=== PATIENT | female | born 1990 | race Caucasian/White ===

== ENCOUNTER 2018-12-18 18:20 | Inpatient (IN) | payer BC, MEDICAID ==
[~2018-12-18] VITALS: Ht 162.6 cm; Wt 99.5 kg
[~2018-12-18 18:20] MED LIST: NORepinephrine 1 mg/ml inj IV ONE
[2018-12-18] MEDS ORDERED: gentamicin inj 500 MG in normal saline 100ml IV soln 100 ML IV ONE (18:30)
[2018-12-18] MEDS ORDERED: normal saline 1000ML IV soln IV ONE (18:30)
[2018-12-18] MEDS ORDERED: NORepinephrine 8mg/ 250ml NS 250 ML IV PRN (18:39)
[2018-12-18] MEDS ORDERED: cefTAZidime inj 2 GM in normal saline 100ml IV soln 100 ML IV ONE (18:39)
--- NOTE | 2018-12-18 18:39 | NUR ---
LEVOPHED IS RUNNING AT 4.99 MCG/MIN. BP 116/59. PT REPORTS SOME PAIN TO HER BACKA ND REPROTS SHE HAD A SPINAL TAP AT [facility].
--- NOTE | 2018-12-18 18:41 | NUR ---
dr chand made aware of the IV site not patent where the levo was running.
--- NOTE | 2018-12-18 18:44 | NUR ---
Pharmacist made aware of the IV and levo. Informed to watch for redness.
--- NOTE | 2018-12-18 18:45 | NUR ---
where her iv line in her RUE is, there is an area that is 1"x3" that is bilingual teacher aide in color. It is tender to touch.
--- NOTE | 2018-12-18 18:53 | NUR ---
SUPPLIES AT [facility] FOR CENTRAL LINE PLACEMENT. ENVIRONMENTAL PROJECTS ADVISOR AT BEDSIDE FOR CXR, MD REQUESTS TO WAIT UNTIL AFTER CL PLACEMENT FOR CXR. PT CALM AND COOPERATIVE. WITH STABLE VS. AFEBRILE
[2018-12-18 18:55] LABS: BASOPHILS % (AUTO) 0.3 % (0-1); EOSINOPHILS % (AUTO) 0.1 % (0-6); HEMOGLOBIN 9.6 g/dl (12.0-16.0); LYMPHOCYTES # (AUTO) 2.7 X10'3 (1.1-4.8); LYMPHOCYTES % (AUTO) 18.2 % (21-51); MEAN CORPUSCULAR HEMOGLOBIN 29.8 PG (27.0-31.0); MEAN CORPUSCULAR HGB CONC 33.1 g/dL (33.0-36.5); MEAN PLATELET VOLUME 7.7 FL (7.4-10.4); MONOCYTES # (AUTO) 0.7 X10'3 (0-0.9); MONOCYTES % (AUTO) 4.8 % (2-12); NEUTROPHILS # (AUTO) 11.4 X10'3 (1.8-7.7); NEUTROPHILS % (AUTO) 76.6 % (42-75); PLATELET COUNT 395 X10'3 (140-440); RED BLOOD COUNT 3.22 X10'6 (4.20-5.60); RED CELL DISTRIBUTION WIDTH 15.9 % (11.5-14.5); WHITE BLOOD COUNT 14.9 X10'3 (4.5-11.0)
[2018-12-18] MEDS ORDERED: NO HOME MEDS (19:01)
[2018-12-18 19:07] LABS: ALANINE AMINOTRANSFERASE 55 U/L (12-78); ALBUMIN 1.8 G/DL (3.4-5.0); ALBUMIN/GLOBULIN RATIO 0.4 (1.1-1.5); ALKALINE PHOSPHATASE 117 IU/L (46-116); ANION GAP 10 (8-16); ASPARTATE AMINO TRANSFERASE 21 U/L (10-37); BILIRUBIN,TOTAL 0.4 MG/DL (0.1-1.0); BLOOD UREA NITROGEN 6 MG/DL (7-18); BUN/CREATININE RATIO 7.7 (6.6-38.0); CALCIUM 7.2 MG/DL (8.5-10.1); CHLORIDE 109 MMOL/L (99-107); CREATININE 0.78 MG/DL (0.40-0.90); GLUCOSE 114 MG/DL (70-104); MAGNESIUM 1.9 MG/DL (1.5-2.4); POTASSIUM 3.9 MMOL/L (3.5-5.1); SODIUM 141 MMOL/L (135-145); TOTAL CARBON DIOXIDE 22.5 MMOL/L (24-32); TOTAL PROTEIN 6.2 G/DL (6.4-8.2); eGFR 89 ML/MIN
--- NOTE | 2018-12-18 19:13 | NUR ---
DR. CARTER AT BEDSIDE FOR CL PLACEMENT. VERBAL RECEIVED FOR MSIV 10 MG FOR5 CL PLACEMENT. 2ND PIV HAS INFILTRATED, DR. CARTER AWARE. 20 G PIV PLACED IN LEFT AC .
[2018-12-18] MEDS ORDERED: morphine 10mg/ml inj. IV ONE (19:15)
--- NOTE | 2018-12-18 19:26 | NUR ---
SHE IS IN POSITION FOR A CENTRAL LINE PLACEMENT AND HER OXYGEN SATURATION DROPPED TO 88% SO OXYGEN 2LNC PLACED.
--- NOTE | 2018-12-18 19:41 | NUR ---
CENTRAL LINE IN PLACE, 3 LUMAN TO RIGHT IJ, PT TOLERATED WELL.
--- NOTE | 2018-12-18 19:55 | NUR ---
CURRENT BP 102/57, DR. RAUL ONEAL GOAL IS 110 SYSTOLIC. D/T DELAY WITH PIV INFILTRATING EARLIER, UPDATED THAT PT STILL RECEIVING THE 3RD LITER THAT WAS TO BE GIVEN BY
--- NOTE | 2018-12-18 20:05 | NUR ---
PER DR. RAUL SHELTON TO USE CENTRAL LINE. DR. BLOUNT AT BEDSIDE FOR ADMISSION.
[2018-12-18] MEDS ORDERED: potassium Cl 20mEq/100mL bag 100 ML IV PRN ×2 (20:10)
[2018-12-18] MEDS ORDERED: potassium Cl 20 mEq SR tablet PO PRN ×2 (20:10)
[2018-12-18] MEDS ORDERED: ondansetron/PF 4mg/2ml inj IV PRN (20:10)
[2018-12-18] MEDS ORDERED: acetaminophen 325mg tablet PO PRN ×2 (20:10)
[2018-12-18] MEDS: K, MAG and/or Phos replacement - Verify level? MC SCH (20:10)
--- NOTE | 2018-12-18 20:13 | NUR ---
MOTHER, FATHER AND BROTHER NOW AT BEDSIDE. ALL INTERACTING APPROPRIATELY. BP 118/73, HR 103.
[2018-12-18] MEDS: normal saline 1000ml 1,000 ML IV SCH (20:53)
--- NOTE | 2018-12-18 21:39 | NUR ---
Patient in room . I have received report from ZOHAIB Salas in the ER and had the opportunity to ask questions and assume patient care.
[2018-12-18 22:09] VITALS: BP 130/76
[2018-12-18 23:00] VITALS: BP 135/86
[2018-12-19] VITALS (24 sets, daily range): BP systolic 96–146; BP diastolic 47–90
[2018-12-19] MEDS: NORMAL SALINE IV SCH ×3 (00:23→15:48)
[2018-12-19] MEDS: GENTAMICIN IV SCH ×3 (00:23→15:48)
[2018-12-19] MEDS: HYDROcodone/acetaminophen 5mg/325mg tablet PO PRN ×4 (00:39→19:43)
[2018-12-19 03:22] LABS: BASOPHILS % (AUTO) 0.2 % (0-1); EOSINOPHILS % (AUTO) 0.3 % (0-6); HEMATOCRIT 26.6 % (35.0-45.0); HEMOGLOBIN 8.8 g/dl (12.0-16.0); LYMPHOCYTES % (AUTO) 14.8 % (21-51); MEAN CORPUSCULAR HGB CONC 33.1 g/dL (33.0-36.5); MEAN CORPUSCULAR VOLUME 90.5 FL (78-98); MEAN PLATELET VOLUME 7.8 FL (7.4-10.4); MONOCYTES # (AUTO) 0.8 X10'3 (0-0.9); MONOCYTES % (AUTO) 5.5 % (2-12); NEUTROPHILS # (AUTO) 10.8 X10'3 (1.8-7.7); NEUTROPHILS % (AUTO) 79.2 % (42-75); PLATELET COUNT 364 X10'3 (140-440); RED BLOOD COUNT 2.94 X10'6 (4.20-5.60); RED CELL DISTRIBUTION WIDTH 15.8 % (11.5-14.5); WHITE BLOOD COUNT 13.7 X10'3 (4.5-11.0)
[2018-12-19 03:35] LABS: ALANINE AMINOTRANSFERASE 51 U/L (12-78); ALBUMIN 1.8 G/DL (3.4-5.0); ALBUMIN/GLOBULIN RATIO 0.4 (1.1-1.5); ALKALINE PHOSPHATASE 117 IU/L (46-116); ANION GAP 5 (8-16); ASPARTATE AMINO TRANSFERASE 22 U/L (10-37); BILIRUBIN,TOTAL 0.4 MG/DL (0.1-1.0); BLOOD UREA NITROGEN 7 MG/DL (7-18); BUN/CREATININE RATIO 8.3 (6.6-38.0); CALCIUM 7.2 MG/DL (8.5-10.1); CHLORIDE 110 MMOL/L (99-107); CREATININE 0.84 MG/DL (0.40-0.90); GLUCOSE 114 MG/DL (70-104); PHOSPHORUS 2.4 MG/DL (2.3-4.5); POTASSIUM 3.7 MMOL/L (3.5-5.1); SODIUM 141 MMOL/L (135-145); TOTAL PROTEIN 6.1 G/DL (6.4-8.2); eGFR 81 ML/MIN
[2018-12-19 03:50] LABS: OXYGEN SATURATION (MIXED VEN) 68.4 % (60-80); PO2 MIXED VENOUS (TEMP COR) 36.4 mmHg (35-46)
[2018-12-19] MEDS: normal saline 1000ml 1,000 ML IV SCH ×2 (06:11→15:06)
--- NOTE | 2018-12-19 06:22 | NUR ---
Problems reprioritized. Patient report given, questions answered & plan of care reviewed with ZOHAIB Latham.
[2018-12-19] MEDS: pantoprazole 40mg Tablet.DR PO SCH (07:35)
[2018-12-19] MEDS ORDERED: cefTAZidime inj 2 GM in normal saline 100ml IV soln 100 ML IV SCH (08:00)
[2018-12-19] MEDS: K, MAG and/or Phos replacement - Verify level? MC SCH (08:00)
[2018-12-19 09:38] LABS: FERRITIN 147 NG/ML (8-252)
[2018-12-19 09:59] LABS: % IRON SATURATION 8 % (11-46); IRON 13 UG/DL (49-151); TOTAL IRON BINDING CAPACITY 160 UG/DL (259-388)
--- NOTE | 2018-12-19 12:51 | NUR ---
Initial: Patient presents from [facility] for evaluation of possible endocarditis, per current MD note patient has probable anemia, history of polysubstance abuse, suspected endocarditis pending echo, and sepsis d/t MSSA. Received one meal so far, it was refused. Pt is alert and oriented. Patient met at bedside, given written high protein education handout with verbal review, patient has increased protein needs r/t sepsis. Discussed menu ordering process and provided written alternative menu for regular diet. Patient endorses poor appetite this morning but is somewhat improved now. Encouraged PO intake of protein. Will continue to follow. Recommend: 1. continue regular diet 2. honor food preferences 3. Weight per rx Addendum: 12/19/18 at [address] Amended: Links added.
[2018-12-19] MEDS: ceFAZolin 1GM/D5W- ADD-VANTAGE 50 ML IV SCH ×2 (16:38→23:14)
[2018-12-19] MEDS ORDERED: MESSAGE TO NURSING IV ONE ×2 (17:00→23:30)
--- NOTE | 2018-12-19 18:30 | NUR ---
Patient in room ICU 2038. I have received report from ZOHAIB Latham and had the opportunity to ask questions and assume patient care. Patient is A&O x4, WATERMAN and is appropriate at this time she is sitting up eating dinner w/o problem. I will continue to monitor.
[2018-12-19] MEDS: lactobacillus rhamnosus 10,000 MMU CELLS/CAPSULE PO SCH (20:30)
--- NOTE | 2018-12-19 21:17 | NUR ---
Per BASIL Bird ok to D/C accu checks.
[2018-12-20] VITALS (18 sets, daily range): BP systolic 96–131; BP diastolic 59–86
[2018-12-20] MEDS: HYDROcodone/acetaminophen 5mg/325mg tablet PO PRN ×4 (00:21→19:05)
[2018-12-20] MEDS: NORMAL SALINE IV SCH ×2 (00:21→07:25)
[2018-12-20] MEDS: GENTAMICIN IV SCH ×2 (00:21→07:25)
[2018-12-20] MEDS: normal saline 1000ml 1,000 ML IV SCH (01:43)
[2018-12-20 02:50] LABS: BASOPHILS % (AUTO) 0.2 % (0-1); EOSINOPHILS # (AUTO) 0.1 X10'3 (0-0.9); EOSINOPHILS % (AUTO) 1.1 % (0-6); HEMATOCRIT 26.9 % (35.0-45.0); HEMOGLOBIN 8.8 g/dl (12.0-16.0); LYMPHOCYTES % (AUTO) 24.4 % (21-51); MEAN CORPUSCULAR HEMOGLOBIN 29.7 PG (27.0-31.0); MEAN CORPUSCULAR HGB CONC 32.7 g/dL (33.0-36.5); MEAN CORPUSCULAR VOLUME 90.8 FL (78-98); MEAN PLATELET VOLUME 7.5 FL (7.4-10.4); MONOCYTES # (AUTO) 0.8 X10'3 (0-0.9); MONOCYTES % (AUTO) 6.9 % (2-12); NEUTROPHILS # (AUTO) 8.2 X10'3 (1.8-7.7); NEUTROPHILS % (AUTO) 67.4 % (42-75); PLATELET COUNT 351 X10'3 (140-440); RED BLOOD COUNT 2.96 X10'6 (4.20-5.60); WHITE BLOOD COUNT 12.1 X10'3 (4.5-11.0)
[2018-12-20 03:05] LABS: ALANINE AMINOTRANSFERASE 46 U/L (12-78); ALBUMIN 1.9 G/DL (3.4-5.0); ALBUMIN/GLOBULIN RATIO 0.4 (1.1-1.5); ALKALINE PHOSPHATASE 106 IU/L (46-116); ANION GAP 8 (8-16); ASPARTATE AMINO TRANSFERASE 27 U/L (10-37); BILIRUBIN,TOTAL 0.2 MG/DL (0.1-1.0); BLOOD UREA NITROGEN 7 MG/DL (7-18); BUN/CREATININE RATIO 8.6 (6.6-38.0); CALCIUM 8.2 MG/DL (8.5-10.1); CHLORIDE 104 MMOL/L (99-107); CREATININE 0.81 MG/DL (0.40-0.90); GLUCOSE 108 MG/DL (70-104); MAGNESIUM 2.1 MG/DL (1.5-2.4); PHOSPHORUS 4.6 MG/DL (2.3-4.5); POTASSIUM 3.5 MMOL/L (3.5-5.1); SODIUM 139 MMOL/L (135-145); TOTAL CARBON DIOXIDE 27.3 MMOL/L (24-32); TOTAL PROTEIN 6.5 G/DL (6.4-8.2); eGFR 85 ML/MIN
--- NOTE | 2018-12-20 06:28 | NUR ---
Problems reprioritized. Patient report given, questions answered & plan of care reviewed with ZOHAIB Rendon.
[2018-12-20] MEDS: K, MAG and/or Phos replacement - Verify level? MC SCH (06:55)
[2018-12-20] MEDS: lactobacillus rhamnosus 10,000 MMU CELLS/CAPSULE PO SCH ×2 (07:22→20:07)
[2018-12-20] MEDS: ceFAZolin 1GM/D5W- ADD-VANTAGE 50 ML IV SCH ×2 (07:24→15:54)
[2018-12-20] MEDS: pantoprazole 40mg Tablet.DR PO SCH (07:29)
--- NOTE | 2018-12-20 14:00 | NUR ---
Patient in room ICU 2038. I have received report from ZOHAIB Zamorano and had the opportunity to ask questions and assume patient care. Transported patient to room 3014 A per wc.
--- NOTE | 2018-12-20 18:12 | NUR ---
Problems reprioritized. Patient report given, questions answered & plan of care reviewed with ZOHAIB Wilkerson.
[2018-12-21] MEDS: ceFAZolin 1GM/D5W- ADD-VANTAGE 50 ML IV SCH ×4 (00:45→23:54)
[2018-12-21] MEDS: HYDROcodone/acetaminophen 5mg/325mg tablet PO PRN ×4 (02:30→17:42)
[2018-12-21 03:00] VITALS: BP 135/92
[2018-12-21 03:57] LABS: BASOPHILS % (AUTO) 0.3 % (0-1); EOSINOPHILS # (AUTO) 0.1 X10'3 (0-0.9); EOSINOPHILS % (AUTO) 1.4 % (0-6); HEMATOCRIT 28.4 % (35.0-45.0); HEMOGLOBIN 9.5 g/dl (12.0-16.0); LYMPHOCYTES # (AUTO) 2.6 X10'3 (1.1-4.8); LYMPHOCYTES % (AUTO) 26.8 % (21-51); MEAN CORPUSCULAR HEMOGLOBIN 30.3 PG (27.0-31.0); MEAN CORPUSCULAR HGB CONC 33.6 g/dL (33.0-36.5); MEAN PLATELET VOLUME 7.4 FL (7.4-10.4); MONOCYTES # (AUTO) 0.5 X10'3 (0-0.9); MONOCYTES % (AUTO) 5.2 % (2-12); NEUTROPHILS # (AUTO) 6.4 X10'3 (1.8-7.7); NEUTROPHILS % (AUTO) 66.3 % (42-75); PLATELET COUNT 399 X10'3 (140-440); RED BLOOD COUNT 3.15 X10'6 (4.20-5.60); RED CELL DISTRIBUTION WIDTH 15.7 % (11.5-14.5); WHITE BLOOD COUNT 9.7 X10'3 (4.5-11.0)
[2018-12-21 04:02] LABS: ALANINE AMINOTRANSFERASE 43 U/L (12-78); ALBUMIN 2.1 G/DL (3.4-5.0); ALBUMIN/GLOBULIN RATIO 0.4 (1.1-1.5); ALKALINE PHOSPHATASE 103 IU/L (46-116); ANION GAP 9 (8-16); ASPARTATE AMINO TRANSFERASE 25 U/L (10-37); BILIRUBIN,TOTAL 0.2 MG/DL (0.1-1.0); BLOOD UREA NITROGEN 11 MG/DL (7-18); BUN/CREATININE RATIO 12.4 (6.6-38.0); CALCIUM 8.5 MG/DL (8.5-10.1); CHLORIDE 103 MMOL/L (99-107); CREATININE 0.89 MG/DL (0.40-0.90); GLUCOSE 129 MG/DL (70-104); MAGNESIUM 2.2 MG/DL (1.5-2.4); PHOSPHORUS 4.4 MG/DL (2.3-4.5); POTASSIUM 3.7 MMOL/L (3.5-5.1); SODIUM 140 MMOL/L (135-145); TOTAL CARBON DIOXIDE 27.8 MMOL/L (24-32); TOTAL PROTEIN 7.1 G/DL (6.4-8.2); eGFR 76 ML/MIN
[2018-12-21 06:00] VITALS: BP 93/56
[2018-12-21] MEDS: pantoprazole 40mg Tablet.DR PO SCH (07:44)
[2018-12-21] MEDS: lactobacillus rhamnosus 10,000 MMU CELLS/CAPSULE PO SCH ×2 (07:44→19:35)
[2018-12-21] MEDS: K, MAG and/or Phos replacement - Verify level? MC SCH (08:00)
[2018-12-21 11:00] VITALS: BP 142/84
[2018-12-21 15:00] VITALS: BP 115/66
--- NOTE | 2018-12-21 15:24 | NUR ---
Per primary RN, to d/c central line per MD.Central line removed, catheter intact, pressure dressing applied. Pt tolerated.
[2018-12-21 18:00] VITALS: BP 110/85
--- NOTE | 2018-12-21 18:32 | NUR ---
Patient in room PCU 3014. I have received report from Michael PENNY and had the opportunity to ask questions and assume patient care.
--- NOTE | 2018-12-21 18:35 | NUR ---
Problems reprioritized. Patient report given, questions answered & plan of care reviewed with Kathi PENNY.
[2018-12-21 23:00] VITALS: BP 90/52
[2018-12-22] MEDS: HYDROcodone/acetaminophen 5mg/325mg tablet PO PRN ×3 (01:47→19:17)
[2018-12-22 02:00] VITALS: BP 98/55
[2018-12-22 06:00] VITALS: BP 103/68
--- NOTE | 2018-12-22 06:10 | NUR ---
Patient in room PCU 3014. I have received report from Kathi PENNY and had the opportunity to ask questions and assume patient care.
--- NOTE | 2018-12-22 06:12 | NUR ---
Problems reprioritized. Patient report given, questions answered & plan of care reviewed with Michael PENNY.
[2018-12-22 06:13] LABS: BASOPHILS % (AUTO) 0.3 % (0-1); EOSINOPHILS # (AUTO) 0.1 X10'3 (0-0.9); EOSINOPHILS % (AUTO) 1.1 % (0-6); HEMATOCRIT 30.7 % (35.0-45.0); HEMOGLOBIN 10.3 g/dl (12.0-16.0); LYMPHOCYTES # (AUTO) 3.3 X10'3 (1.1-4.8); LYMPHOCYTES % (AUTO) 32.5 % (21-51); MEAN CORPUSCULAR HEMOGLOBIN 30.1 PG (27.0-31.0); MEAN CORPUSCULAR HGB CONC 33.5 g/dL (33.0-36.5); MEAN CORPUSCULAR VOLUME 89.9 FL (78-98); MEAN PLATELET VOLUME 7.2 FL (7.4-10.4); MONOCYTES # (AUTO) 0.6 X10'3 (0-0.9); MONOCYTES % (AUTO) 5.6 % (2-12); NEUTROPHILS # (AUTO) 6.1 X10'3 (1.8-7.7); NEUTROPHILS % (AUTO) 60.5 % (42-75); PLATELET COUNT 494 X10'3 (140-440); RED BLOOD COUNT 3.42 X10'6 (4.20-5.60); RED CELL DISTRIBUTION WIDTH 15.8 % (11.5-14.5); WHITE BLOOD COUNT 10.1 X10'3 (4.5-11.0)
[2018-12-22 06:40] LABS: ALANINE AMINOTRANSFERASE 39 U/L (12-78); ALBUMIN 2.4 G/DL (3.4-5.0); ALBUMIN/GLOBULIN RATIO 0.4 (1.1-1.5); ALKALINE PHOSPHATASE 104 IU/L (46-116); ANION GAP 9 (8-16); ASPARTATE AMINO TRANSFERASE 25 U/L (10-37); BILIRUBIN,TOTAL 0.2 MG/DL (0.1-1.0); BLOOD UREA NITROGEN 15 MG/DL (7-18); BUN/CREATININE RATIO 16.7 (6.6-38.0); CALCIUM 8.9 MG/DL (8.5-10.1); CHLORIDE 105 MMOL/L (99-107); GLUCOSE 108 MG/DL (70-104); MAGNESIUM 2.3 MG/DL (1.5-2.4); PHOSPHORUS 4.1 MG/DL (2.3-4.5); POTASSIUM 4.3 MMOL/L (3.5-5.1); SODIUM 141 MMOL/L (135-145); TOTAL CARBON DIOXIDE 26.8 MMOL/L (24-32); TOTAL PROTEIN 7.8 G/DL (6.4-8.2); eGFR 75 ML/MIN
[2018-12-22] MEDS: K, MAG and/or Phos replacement - Verify level? MC SCH (08:00)
[2018-12-22] MEDS: lactobacillus rhamnosus 10,000 MMU CELLS/CAPSULE PO SCH ×2 (08:33→19:17)
[2018-12-22] MEDS: ceFAZolin 1GM/D5W- ADD-VANTAGE 50 ML IV SCH ×2 (08:33→16:39)
[2018-12-22] MEDS: pantoprazole 40mg Tablet.DR PO SCH (08:33)
[2018-12-22 11:00] VITALS: BP 112/74
--- NOTE | 2018-12-22 12:06 | NUR ---
Reassessment: Patient's PO intake slowly improving with average 75% at breakfast today, previously 25-50%. Pt has alternative menu to provide additional food options for meal trays. LBM 12/18, d/w dietary to send prunes with dinner tonight as constipation could lead to decreased appetite. Per MD notes pt with severe iron deficiency anemia currently with no bleeding, not to receive IV iron at this time given septicemia. Will continue to follow closely. Recommend: 1. continue regular diet 2. honor food preferences; encourage PO intake 3. routine bowel care 4. Weight per rx Addendum: 12/22/18 at [address] Amended: Links added.
[2018-12-22 15:00] VITALS: BP 111/75
[2018-12-22 18:00] VITALS: BP 107/76
--- NOTE | 2018-12-22 18:20 | NUR ---
Problems reprioritized. Patient report given, questions answered & plan of care reviewed with Alcira PENNY.
[2018-12-22 22:00] VITALS: BP 97/56
[2018-12-23] MEDS: ceFAZolin 1GM/D5W- ADD-VANTAGE 50 ML IV SCH ×2 (00:28→07:30)
[2018-12-23 02:00] VITALS: BP 94/55
[2018-12-23 05:56] LABS: BASOPHILS % (AUTO) 0.3 % (0-1); EOSINOPHILS # (AUTO) 0.1 X10'3 (0-0.9); EOSINOPHILS % (AUTO) 0.9 % (0-6); HEMATOCRIT 30.5 % (35.0-45.0); HEMOGLOBIN 10.2 g/dl (12.0-16.0); LYMPHOCYTES # (AUTO) 3.3 X10'3 (1.1-4.8); LYMPHOCYTES % (AUTO) 33.3 % (21-51); MEAN CORPUSCULAR HEMOGLOBIN 30.4 PG (27.0-31.0); MEAN CORPUSCULAR HGB CONC 33.6 g/dL (33.0-36.5); MEAN CORPUSCULAR VOLUME 90.6 FL (78-98); MEAN PLATELET VOLUME 6.9 FL (7.4-10.4); MONOCYTES # (AUTO) 0.5 X10'3 (0-0.9); MONOCYTES % (AUTO) 4.5 % (2-12); NEUTROPHILS # (AUTO) 6.1 X10'3 (1.8-7.7); PLATELET COUNT 526 X10'3 (140-440); RED BLOOD COUNT 3.36 X10'6 (4.20-5.60); RED CELL DISTRIBUTION WIDTH 15.7 % (11.5-14.5); WHITE BLOOD COUNT 10.1 X10'3 (4.5-11.0)
[2018-12-23 06:00] VITALS: BP 97/60
--- NOTE | 2018-12-23 06:05 | NUR ---
Problems reprioritized. Patient report given, questions answered & plan of care reviewed with Michael PENNY.
--- NOTE | 2018-12-23 06:10 | NUR ---
Problems reprioritized. Patient report given, questions answered & plan of care reviewed with Alcira PENNY.
[2018-12-23 06:22] LABS: ALANINE AMINOTRANSFERASE 37 U/L (12-78); ALBUMIN 2.6 G/DL (3.4-5.0); ALBUMIN/GLOBULIN RATIO 0.5 (1.1-1.5); ALKALINE PHOSPHATASE 92 IU/L (46-116); ANION GAP 10 (8-16); ASPARTATE AMINO TRANSFERASE 26 U/L (10-37); BILIRUBIN,TOTAL 0.3 MG/DL (0.1-1.0); BLOOD UREA NITROGEN 20 MG/DL (7-18); BUN/CREATININE RATIO 23.5 (6.6-38.0); CALCIUM 8.9 MG/DL (8.5-10.1); CHLORIDE 105 MMOL/L (99-107); CREATININE 0.85 MG/DL (0.40-0.90); GLUCOSE 103 MG/DL (70-104); MAGNESIUM 2.3 MG/DL (1.5-2.4); PHOSPHORUS 4.3 MG/DL (2.3-4.5); POTASSIUM 4.3 MMOL/L (3.5-5.1); SODIUM 140 MMOL/L (135-145); TOTAL CARBON DIOXIDE 25.5 MMOL/L (24-32); TOTAL PROTEIN 8.1 G/DL (6.4-8.2); eGFR 80 ML/MIN
[2018-12-23] MEDS: lactobacillus rhamnosus 10,000 MMU CELLS/CAPSULE PO SCH (07:27)
[2018-12-23] MEDS: pantoprazole 40mg Tablet.DR PO SCH (07:27)
[2018-12-23] MEDS: K, MAG and/or Phos replacement - Verify level? MC SCH (08:00)
[2018-12-23] MEDS ORDERED: CEPH-572 PO (12:36)
--- NOTE | 2018-12-23 14:10 | NUR ---
Pt DC'd home with Mom. IV removed, canula intact. Telebox removed and returned to [employer]. Pt stable upon DC, vitals stable. DC paperwork gone over with Pt and mom. Allowed both pt and mom to ask questions and then answer them. New prescriptions called into [facility] in [place]. Went over new medication and allowed pt to ask questions. Pt has follow up appt at [facility] on 12/27/18 at 1600. Pt went home with drug rehab information on classes and times. Pt's belongings gathered and sent with Pt. Pt left with mother in private vehicle for home in [place].
== END 2018-12-23 14:10 | disposition home or self-care (01) | DRG 720 ==
LOC: ER 18:21 → ICU 2S 21:54 → CMPBEDREQ 21:59 → PCU 3S 12-20 15:58
PROVIDERS: ADMIT Internal Medicine Critical Care Medicine; ATTEND Internal Medicine Critical Care Medicine
PROC: 02H633Z Insertion of Infusion Device into Right Atrium, Percutaneous Approach (ICD-10-PCS; principal; 2018-12-18)
PROC: B244ZZZ Ultrasonography of Right Heart (ICD-10-PCS; 2018-12-18)
DX: A41.01 Sepsis due to Methicillin susceptible Staphylococcus aureus (principal); I33.9 Acute and subacute endocarditis, unspecified; D50.9 Iron deficiency anemia, unspecified; F15.10 Other stimulant abuse, uncomplicated; F32.9 Major depressive disorder, single episode, unspecified; I34.0 Nonrheumatic mitral (valve) insufficiency; M54.9 Dorsalgia, unspecified; Z88.1 Allergy status to other antibiotic agents; Z87.01 Personal history of pneumonia (recurrent); Z71.51 Drug abuse counseling and surveillance of drug abuser
CPT/HCPCS: 36415; 36556; 71045; 76937; 80053; 82728; 82810; 82948; 83540; 83550; 83605; 83735; 84100; 84145; 85025; 87040; 87077; 87081; 87186; 93306; 96365; 96367; 96375; 99291; G0378; J0690; J0713; J1580; J2270

== ENCOUNTER 2019-04-30 17:52 | Emergency (ER) | payer MEDICAID ==
[~2019-04-30] VITALS: Ht 160 cm; Wt 101.3 kg
[2019-04-30 18:33] LABS: CLARITY,URINE SLIGHTLY CLOUDY (Clear); COLOR,URINE STRAW (Yellow); GLUCOSE, URINE NEGATIVE (Neg); KETONES,URINE NEGATIVE (Neg); LEUKOCYTE ESTERASE ,URINE NEGATIVE (Neg); NITRITES, URINE NEGATIVE (Neg); OCCULT BLOOD,URINE NEGATIVE (Neg); PROTEIN,URINE NEGATIVE (Neg); URINE HCG NEGATIVE (NEG); UROBILINOGEN,URINE 0.2 E.U/dL (0.2-1.0)
--- NOTE | 2019-04-30 18:35 | NUR ---
The patient ambulated to ER overflow accompanied by her [facility] counselor. She was placed in green scrubs and belongings were inventoried by LAISHA Malcolm.
[2019-04-30 18:37] LABS: UA COLLECTION TYPE VOIDED
[2019-04-30 18:47] LABS: BACTERIA,URINE 2+ /HPF (Neg); MUCUS STRANDS NONE SEEN /LPF (Neg); RBC,URINE NONE SEEN /HPF (0-2); SQUAMOUS EPITHELIAL CELL,UR FEW /LPF (FEW); WBC,URINE 0-4 /HPF (0-4)
[2019-04-30 18:51] LABS: URINE AMPHETAMINE SCREEN NEGATIVE (Neg); URINE BARBITUATE SCREEN NEGATIVE (Neg); URINE BENZODIAZEPINES SCREEN NEGATIVE (Neg); URINE CANNABINOID SCREEN NEGATIVE (Neg); URINE COCAINE SCREEN NEGATIVE (Neg); URINE METHADONE SCREEN NEGATIVE (Neg); URINE OPIATE SCREEN NEGATIVE (Neg); URINE PHENCYCLIDINE SCREEN NEGATIVE (Neg)
[2019-04-30 19:00] LABS: BASOPHILS # (AUTO) 0.1 X10'3 (0-0.2); BASOPHILS % (AUTO) 0.6 % (0-1); EOSINOPHILS # (AUTO) 0.1 X10'3 (0-0.9); EOSINOPHILS % (AUTO) 0.9 % (0-6); HEMATOCRIT 42.5 % (35.0-45.0); HEMOGLOBIN 14.1 g/dl (12.0-16.0); LYMPHOCYTES # (AUTO) 3.3 X10'3 (1.1-4.8); LYMPHOCYTES % (AUTO) 34.9 % (21-51); MEAN CORPUSCULAR HEMOGLOBIN 30.6 PG (27.0-31.0); MEAN CORPUSCULAR HGB CONC 33.2 g/dL (33.0-36.5); MEAN PLATELET VOLUME 7.5 FL (7.4-10.4); MONOCYTES # (AUTO) 0.3 X10'3 (0-0.9); MONOCYTES % (AUTO) 3.3 % (2-12); NEUTROPHILS # (AUTO) 5.7 X10'3 (1.8-7.7); NEUTROPHILS % (AUTO) 60.3 % (42-75); PLATELET COUNT 534 X10'3 (140-440); RED BLOOD COUNT 4.62 X10'6 (4.20-5.60); RED CELL DISTRIBUTION WIDTH 15.1 % (11.5-14.5); WHITE BLOOD COUNT 9.4 X10'3 (4.5-11.0)
[2019-04-30 19:11] LABS: ALANINE AMINOTRANSFERASE 36 U/L (12-78); ALBUMIN/GLOBULIN RATIO 0.9 (1.1-1.5); ALKALINE PHOSPHATASE 84 IU/L (46-116); ANION GAP 10 (8-16); ASPARTATE AMINO TRANSFERASE 21 U/L (10-37); BILIRUBIN,TOTAL 0.3 MG/DL (0.1-1.0); BLOOD UREA NITROGEN 14 MG/DL (7-18); BUN/CREATININE RATIO 14.7 (6.6-38.0); CALCIUM 9.1 MG/DL (8.5-10.1); CHLORIDE 104 MMOL/L (99-107); CREATININE 0.95 MG/DL (0.40-0.90); GLUCOSE 137 MG/DL (70-104); POTASSIUM 3.5 MMOL/L (3.5-5.1); SODIUM 139 MMOL/L (135-145); TOTAL CARBON DIOXIDE 25.4 MMOL/L (24-32); TOTAL PROTEIN 8.7 G/DL (6.4-8.2); eGFR 71 ML/MIN
[2019-04-30 19:20] LABS: ETHANOL < 0.010 GM/DL (0.0-0.010)
--- NOTE | 2019-04-30 20:30 | NUR ---
Patient lives with her parents. She states that the relationship with her father is toxic and is always riding her to straighten up. The patient reports that she's attempted suicide by OD in the past and has been thinking about it again. She denies current drug use, but has been user in the past. She has not made an attempt and is asking for help.
--- NOTE | 2019-04-30 21:23 | NUR ---
The patient is asleep on her right side. Resp. even and unlabored. No s/s of distress.
--- NOTE | 2019-04-30 23:01 | NUR ---
The patient has been evaluated by the [facility] and is now sleeping on her left side.
--- NOTE | 2019-04-30 23:30 | NUR ---
[facility] Will wait and see if she is accepted.
--- NOTE | 2019-05-01 00:43 | NUR ---
Pt is sleeping, lying on her right side with blankets covering around her shouders. RR 14 and unlabored. Sitter and RN within view of Pt aat.
--- NOTE | 2019-05-01 01:48 | NUR ---
Patient asleep in semi-prone position. RR even and unlabored. No s/s of distress.
--- NOTE | 2019-05-01 03:08 | NUR ---
Patient awake and using the restroom. Denies needs.
--- NOTE | 2019-05-01 05:12 | NUR ---
Patient continues to sleep. RR unlabored. No s/s of distress.
[2019-05-01] MEDS ORDERED: ATOM80CA PO (06:45)
--- NOTE | 2019-05-01 07:00 | NUR ---
PT IS RESTING IN BED. NO CONCERNS AT THIS TIME
[2019-05-01] MEDS ORDERED: ATOMOXETINE HCL 40 MG CAPSULE PO SCH (08:00)
[2019-05-01] MEDS ORDERED: ATOMOXETINE 80 MG CAPSULE PO SCH (08:00)
--- NOTE | 2019-05-01 08:00 | NUR ---
PT IS EATING BREAKFAST
--- NOTE | 2019-05-01 09:00 | NUR ---
PT IS RESTING IN BED. NO CONCERNS AT THIS TIME
--- NOTE | 2019-05-01 10:00 | NUR ---
PT IS SLEEPING
--- NOTE | 2019-05-01 11:00 | NUR ---
PT IS RESTING IN BED. NO CONCERNS AT THIS TIME
--- NOTE | 2019-05-01 12:00 | NUR ---
PT IS RESTING. NO CONCERNS AT THIS TIME
--- NOTE | 2019-05-01 13:00 | NUR ---
PT IS RESTING. NO CONCERNS AT THIS TIME
[2019-05-01] MEDS ORDERED: nicotine 21mg patch - 24 hr TD ONE (13:20)
--- NOTE | 2019-05-01 14:00 | NUR ---
PT IS RESTING. NO CONCERNS AT THIS TIME
--- NOTE | 2019-05-01 14:10 | NUR ---
[facility] CALLED AND STATES PT ACCEPTED TO [facility] BY NURSE PRACTITIONER OLIVIER AND TRANSPORT TO ARRIVE 1929, CHARGE NURSE LUCIANA INFORMED.
--- NOTE | 2019-05-01 15:00 | NUR ---
PT IS RESTING. NO CONCERNS AT THIS TIME
--- NOTE | 2019-05-01 16:00 | NUR ---
PT IS RESTING. NO CONCERNS AT THIS TIME
--- NOTE | 2019-05-01 17:00 | NUR ---
PT RESTING IN BED.
[2019-05-01 17:52] VITALS: BP 120/85
== END 2019-05-01 20:10 ==
LOC: ER 17:53
DX: F31.9 Bipolar disorder, unspecified (principal); R45.851 Suicidal ideations; F98.8 Other specified behavioral and emotional disorders with onset usually occurring in childhood and adolescence; F17.200 Nicotine dependence, unspecified, uncomplicated; Z98.890 Other specified postprocedural states; Z88.1 Allergy status to other antibiotic agents
CPT/HCPCS: 36415; 80053; 80305; 80320; 81001; 81025; 84443; 85025; 99285

== ENCOUNTER 2019-08-31 06:40 | Emergency (ER) | payer MEDICAID ==
[~2019-08-31] VITALS: Ht 162.6 cm; Wt 95.5 kg
[~2019-08-31 06:40] MED LIST changes: +ATOM80CA PO; -NORepinephrine 1 mg/ml inj IV ONE
[2019-08-31] MEDS ORDERED: proCHLORperazine 10 MG/2 ml inj IM ONE (07:30)
--- NOTE | 2019-08-31 07:43 | NUR ---
pt out to ct via wheelchair with detective lieutenant
[2019-08-31] MEDS ORDERED: ondansetron/PF 4mg/2ml inj IV ONE (07:55)
[2019-08-31] MEDS ORDERED: valproate sod inj 500 MG in normal saline 100ml IV soln 95 ML IV ONE (07:55)
[2019-08-31] MEDS ORDERED: ketorolac trometh. 30mg/ml inj. IV ONE (07:55)
[2019-08-31 09:23] VITALS: BP 109/69
== END 2019-08-31 09:25 | disposition home or self-care (01) ==
LOC: ER 06:40
DX: S06.0X9A Concussion with loss of consciousness of unspecified duration, initial encounter (principal); G44.309 Post-traumatic headache, unspecified, not intractable; F31.9 Bipolar disorder, unspecified; R11.2 Nausea with vomiting, unspecified; F90.9 Attention-deficit hyperactivity disorder, unspecified type; Z98.890 Other specified postprocedural states; Z72.89 Other problems related to lifestyle; Z88.1 Allergy status to other antibiotic agents; Z79.899 Other long term (current) drug therapy; W01.0XXA Fall on same level from slipping, tripping and stumbling without subsequent striking against object, initial encounter; Y93.89 Activity, other specified; Y92.89 Other specified places as the place of occurrence of the external cause; Y99.8 Other external cause status
CPT/HCPCS: 70450; 96372; 96374; 96375; 99285; J0780; J1885; J2405

== ENCOUNTER 2019-10-07 13:14 | Emergency (ER) | payer MEDICAID ==
[~2019-10-07] VITALS: Ht 162.6 cm; Wt 104.9 kg
[2019-10-07 13:21] VITALS: BP 122/89
[2019-10-07 14:36] LABS: BASOPHILS # (AUTO) 0.1 X10'3 (0-0.2); BASOPHILS % (AUTO) 0.6 % (0-1); EOSINOPHILS # (AUTO) 0.1 X10'3 (0-0.9); EOSINOPHILS % (AUTO) 0.6 % (0-6); HEMATOCRIT 38.1 % (35.0-45.0); HEMOGLOBIN 12.6 g/dl (12.0-16.0); LYMPHOCYTES % (AUTO) 33.7 % (21-51); MEAN CORPUSCULAR HEMOGLOBIN 31.3 PG (27.0-31.0); MEAN CORPUSCULAR HGB CONC 33.1 g/dL (33.0-36.5); MEAN CORPUSCULAR VOLUME 94.4 FL (78-98); MEAN PLATELET VOLUME 7.3 FL (7.4-10.4); MONOCYTES # (AUTO) 0.4 X10'3 (0-0.9); MONOCYTES % (AUTO) 4.3 % (2-12); NEUTROPHILS # (AUTO) 5.3 X10'3 (1.8-7.7); NEUTROPHILS % (AUTO) 60.8 % (42-75); PLATELET COUNT 539 X10'3 (140-440); RED BLOOD COUNT 4.03 X10'6 (4.20-5.60); RED CELL DISTRIBUTION WIDTH 15.5 % (11.5-14.5); WHITE BLOOD COUNT 8.8 X10'3 (4.5-11.0)
[2019-10-07 14:51] LABS: ALANINE AMINOTRANSFERASE 35 U/L (12-78); ALBUMIN 3.8 G/DL (3.4-5.0); ALBUMIN/GLOBULIN RATIO 0.8 (1.1-1.5); ALKALINE PHOSPHATASE 75 IU/L (46-116); ANION GAP 7 (8-16); ASPARTATE AMINO TRANSFERASE 26 U/L (10-37); BILIRUBIN,TOTAL 0.5 MG/DL (0.1-1.0); BLOOD UREA NITROGEN 18 MG/DL (7-18); BUN/CREATININE RATIO 18.9 (6.6-38.0); C-REACTIVE PROTEIN 1.53 MG/DL (0.0-0.5); CALCIUM 9.3 MG/DL (8.5-10.1); CHLORIDE 107 MMOL/L (99-107); CREATININE 0.95 MG/DL (0.40-0.90); GLUCOSE 99 MG/DL (70-104); POTASSIUM 4.3 MMOL/L (3.5-5.1); SODIUM 142 MMOL/L (135-145); TOTAL CARBON DIOXIDE 27.8 MMOL/L (24-32); TOTAL PROTEIN 8.3 G/DL (6.4-8.2); eGFR 70 ML/MIN
[2019-10-07 15:37] LABS: URINE HCG NEGATIVE (NEG)
[2019-10-07 15:43] LABS: URINE AMPHETAMINE SCREEN NEGATIVE (Neg); URINE BARBITUATE SCREEN NEGATIVE (Neg); URINE BENZODIAZEPINES SCREEN NEGATIVE (Neg); URINE CANNABINOID SCREEN NEGATIVE (Neg); URINE COCAINE SCREEN NEGATIVE (Neg); URINE METHADONE SCREEN NEGATIVE (Neg); URINE OPIATE SCREEN NEGATIVE (Neg); URINE PHENCYCLIDINE SCREEN NEGATIVE (Neg)
[2019-10-07 15:45] LABS: CLARITY,URINE SLIGHTLY CLOUDY (Clear); COLOR,URINE YELLOW (Yellow); GLUCOSE, URINE NEGATIVE (Neg); KETONES,URINE NEGATIVE (Neg); LEUKOCYTE ESTERASE ,URINE TRACE (Neg); NITRITES, URINE NEGATIVE (Neg); OCCULT BLOOD,URINE NEGATIVE (Neg); PH,URINE 5.5 (4.8-8.0); PROTEIN,URINE NEGATIVE (Neg); UROBILINOGEN,URINE 0.2 E.U/dL (0.2-1.0)
[2019-10-07 15:50] LABS: UA COLLECTION TYPE CLN CATCH MIDSTREAM
[2019-10-07 15:52] LABS: MUCUS STRANDS MODERATE /LPF (Neg); RBC,URINE NONE SEEN /HPF (0-2); SQUAMOUS EPITHELIAL CELL,UR MODERATE /LPF (FEW)
[2019-10-07 15:53] LABS: BACTERIA,URINE 2+ /HPF (Neg); SPERM FEW /HPF
== END 2019-10-07 16:06 | disposition home or self-care (01) ==
LOC: ER 13:14
DX: M79.89 Other specified soft tissue disorders (principal); R79.82 Elevated C-reactive protein (CRP); F31.9 Bipolar disorder, unspecified; Z87.01 Personal history of pneumonia (recurrent); Z72.89 Other problems related to lifestyle; Z88.1 Allergy status to other antibiotic agents; Z79.899 Other long term (current) drug therapy
CPT/HCPCS: 36415; 80053; 80305; 81001; 81025; 85025; 85651; 86140; 99283

== ENCOUNTER 2020-12-18 10:00 | Emergency (ER) | payer MEDICAID ==
[~2020-12-18] VITALS: Ht 162.6 cm; Wt 95.5 kg
[2020-12-18 11:33] LABS: BASOPHILS % (AUTO) 0.4 % (0-1); EOSINOPHILS # (AUTO) 0.1 X10'3 (0-0.9); EOSINOPHILS % (AUTO) 0.7 % (0-6); HEMATOCRIT 37.3 % (35.0-45.0); HEMOGLOBIN 12.9 g/dl (12.0-16.0); LYMPHOCYTES # (AUTO) 1.9 X10'3 (1.1-4.8); MEAN CORPUSCULAR HEMOGLOBIN 32.9 PG (27.0-31.0); MEAN CORPUSCULAR HGB CONC 34.6 g/dL (33.0-36.5); MEAN CORPUSCULAR VOLUME 94.9 FL (78-98); MEAN PLATELET VOLUME 7.3 FL (7.4-10.4); MONOCYTES # (AUTO) 0.5 X10'3 (0-0.9); NEUTROPHILS # (AUTO) 5.3 X10'3 (1.8-7.7); NEUTROPHILS % (AUTO) 67.9 % (42-75); PLATELET COUNT 479 X10'3 (140-440); RED BLOOD COUNT 3.93 X10'6 (4.20-5.60); RED CELL DISTRIBUTION WIDTH 14.7 % (11.5-14.5); WHITE BLOOD COUNT 7.8 X10'3 (4.5-11.0)
[2020-12-18 11:46] LABS: ALANINE AMINOTRANSFERASE 49 U/L (12-78); ALBUMIN 3.6 G/DL (3.4-5.0); ALBUMIN/GLOBULIN RATIO 0.8 (1.1-1.5); ALKALINE PHOSPHATASE 86 IU/L (46-116); ANION GAP 13 (8-16); ASPARTATE AMINO TRANSFERASE 36 U/L (10-37); BILIRUBIN,TOTAL 0.3 MG/DL (0.1-1.0); BLOOD UREA NITROGEN 17 MG/DL (7-18); BUN/CREATININE RATIO 20.2 (6.6-38.0); CALCIUM 8.5 MG/DL (8.5-10.1); CHLORIDE 105 MMOL/L (99-107); CREATININE 0.84 MG/DL (0.40-0.90); GLUCOSE 100 MG/DL (70-104); POTASSIUM 3.7 MMOL/L (3.5-5.1); SODIUM 141 MMOL/L (135-145); TOTAL CARBON DIOXIDE 22.7 MMOL/L (24-32); TOTAL PROTEIN 8.4 G/DL (6.4-8.2); eGFR 80 ML/MIN
[2020-12-18 12:39] LABS: D-DIMER < 0.19 MG/L FEU (0-0.50)
== END 2020-12-18 12:55 | disposition home or self-care (01) ==
LOC: ER 10:00
DX: R07.89 Other chest pain (principal); T50.905A Adverse effect of unspecified drugs, medicaments and biological substances, initial encounter; R06.02 Shortness of breath; R53.1 Weakness; F31.9 Bipolar disorder, unspecified; Z87.01 Personal history of pneumonia (recurrent); Z72.89 Other problems related to lifestyle; Z98.890 Other specified postprocedural states; Z88.1 Allergy status to other antibiotic agents; Z79.899 Other long term (current) drug therapy; Y92.89 Other specified places as the place of occurrence of the external cause
CPT/HCPCS: 36415; 71045; 80053; 85025; 85379; 99284

== ENCOUNTER 2020-12-31 14:50 | Outpatient (CLI) | payer MEDICAID | END 2020-12-31 23:59 | disposition home or self-care (01) | LOC: CARD DIAG 14:50 | DX: I34.0 Nonrheumatic mitral (valve) insufficiency (principal) | CPT/HCPCS: 93306 ==

== ENCOUNTER 2022-05-13 06:26 | Emergency (ER) | payer MEDICAID, OTHER ==
[~2022-05-13] VITALS: Ht 160 cm; Wt 92.0 kg
[2022-05-13] MEDS ORDERED: normal saline 1000ml 1,000 ML IV ONE (06:55)
[2022-05-13 07:33] LABS: BASOPHILS # (AUTO) 0.1 X10'3 (0-0.2); BASOPHILS % (AUTO) 0.6 % (0-1); EOSINOPHILS # (AUTO) 0.1 X10'3 (0-0.9); EOSINOPHILS % (AUTO) 0.7 % (0-6); HEMATOCRIT 39.4 % (35.0-45.0); HEMOGLOBIN 13.1 g/dl (12.0-16.0); LYMPHOCYTES # (AUTO) 3.5 X10'3 (1.1-4.8); LYMPHOCYTES % (AUTO) 39.4 % (21-51); MEAN CORPUSCULAR HEMOGLOBIN 32.1 PG (27.0-31.0); MEAN CORPUSCULAR HGB CONC 33.3 g/dL (33.0-36.5); MEAN CORPUSCULAR VOLUME 96.6 FL (78-98); MEAN PLATELET VOLUME 7.6 FL (7.4-10.4); MONOCYTES # (AUTO) 0.6 X10'3 (0-0.9); MONOCYTES % (AUTO) 7.1 % (2-12); NEUTROPHILS # (AUTO) 4.6 X10'3 (1.8-7.7); NEUTROPHILS % (AUTO) 52.2 % (42-75); PLATELET COUNT 552 X10'3 (140-440); RED BLOOD COUNT 4.08 X10'6 (4.20-5.60); RED CELL DISTRIBUTION WIDTH 14.3 % (11.5-14.5); WHITE BLOOD COUNT 8.8 X10'3 (4.5-11.0)
[2022-05-13 07:46] LABS: ALANINE AMINOTRANSFERASE 30 U/L (12-78); ALBUMIN/GLOBULIN RATIO 0.9 (1.1-1.5); ALKALINE PHOSPHATASE 59 IU/L (46-116); ANION GAP 9 (8-16); ASPARTATE AMINO TRANSFERASE 29 U/L (10-37); BILIRUBIN,TOTAL 0.3 MG/DL (0.1-1.0); BLOOD UREA NITROGEN 15 MG/DL (7-18); BUN/CREATININE RATIO 15.3 (6.6-38.0); CALCIUM 9.3 MG/DL (8.5-10.1); CHLORIDE 104 MMOL/L (99-107); CREATININE 0.98 MG/DL (0.40-0.90); GLUCOSE 82 MG/DL (70-104); SODIUM 140 MMOL/L (135-145); TOTAL CARBON DIOXIDE 26.6 MMOL/L (24-32); TOTAL PROTEIN 8.5 G/DL (6.4-8.2); eGFR 67 ML/MIN
[2022-05-13] MEDS ORDERED: magnesium Cl slow-release 64mg tablet PO ONE (08:00)
[2022-05-13] MEDS ORDERED: potassium Cl 20 mEq SR tablet PO ONE (08:00)
[2022-05-13] MEDS ORDERED: potassium bicarbonate/cit acid 25mEq tablet.effervescent PO ONE (08:00)
[2022-05-13 08:09] LABS: CLARITY,URINE CLOUDY (Clear); COLOR,URINE YELLOW (Yellow); GLUCOSE, URINE NEGATIVE (Neg); KETONES,URINE NEGATIVE (Neg); LEUKOCYTE ESTERASE ,URINE NEGATIVE (Neg); NITRITES, URINE NEGATIVE (Neg); OCCULT BLOOD,URINE NEGATIVE (Neg); PH,URINE 7.5 (4.8-8.0); PROTEIN,URINE NEGATIVE (Neg); UROBILINOGEN,URINE 0.2 E.U/dL (0.2-1.0)
[2022-05-13 08:15] LABS: UA COLLECTION TYPE CLN CATCH MIDSTREAM
[2022-05-13] MEDS ORDERED: normal saline 1000ML IV soln IVB ONE (08:15)
[2022-05-13 08:19] LABS: MUCUS STRANDS NONE SEEN /LPF (Neg); SQUAMOUS EPITHELIAL CELL,UR MANY /LPF (FEW); URINE AMPHETAMINE SCREEN NEGATIVE (Neg); URINE BARBITUATE SCREEN NEGATIVE (Neg); URINE BENZODIAZEPINES SCREEN NEGATIVE (Neg); URINE CANNABINOID SCREEN NEGATIVE (Neg); URINE COCAINE SCREEN NEGATIVE (Neg); URINE METHADONE SCREEN NEGATIVE (Neg); URINE OPIATE SCREEN NEGATIVE (Neg); URINE PHENCYCLIDINE SCREEN NEGATIVE (Neg)
[2022-05-13 08:20] LABS: AMORPHOUS PHOSPHATES 4+
[2022-05-13 08:21] LABS: RBC,URINE 0-2 /HPF (0-2); WBC,URINE 0-4 /HPF (0-4)
[2022-05-13 08:22] LABS: BACTERIA,URINE FEW /HPF (Neg)
[2022-05-13 11:55] VITALS: BP 139/102
== END 2022-05-13 12:02 | disposition home or self-care (01) ==
LOC: ER 06:28
DX: E87.6 Hypokalemia (principal); R11.10 Vomiting, unspecified; R53.1 Weakness; F31.9 Bipolar disorder, unspecified; Z72.89 Other problems related to lifestyle; Z98.890 Other specified postprocedural states; Z88.1 Allergy status to other antibiotic agents; Z79.899 Other long term (current) drug therapy
CPT/HCPCS: 36415; 71045; 80053; 80305; 81001; 82948; 83605; 84145; 85025; 96360; 96361; 99284; J7030

== ENCOUNTER 2024-07-25 11:33 | Outpatient (CLI) | payer SELFPAY | END 2024-07-25 23:59 | disposition home or self-care (01) | LOC: RAD 11:33 | PROVIDERS: ATTEND Physician Assistant | DX: F11.20 Opioid dependence, uncomplicated (principal) | CPT/HCPCS: 93005 ==